=== PATIENT | male | born 1985 | race Caucasian/White ===

== ENCOUNTER 2017-04-14 16:04 | Day surgery (SDC) | payer OTHER ==
[~2017-04-14 16:04] MED LIST: Sodium Chloride 0.9% 10 ML Syringe FLUSH PRN; Sodium Chloride 0.9% 2.5 ML Syringe FLUSH PRN
--- NOTE | 2017-04-14 16:04 | PCM.HP ---
H&P History of Present Illness - General Date of Service: 04/14/17 Admit Problem/Dx: Admission Diagnosis/Problem Admission Diagnosis/Problem Foreign body in lower limb Source of Information: Patient, Old Records History Limitations: Reports: No Limitations - History of Present Illness Initial Comments - Free Text/Narative: Pt is a 31 y/o male who was hitting a pin today with a hammer and had a metal fragment lodge in his RLE. C/o immediate pain. Denies other injuries. H/o previous fracture around the knee, but has gone on to do well following that. C/ o pain with ankle movement. Denies distal paralysis, paresthesias. Onset of Symptoms: Reports: Today Location: Reports: Lower Extremity, Right Quality: Reports: Sharp Severity: Moderate - Related Data Allergies/Adverse Reactions: Allergies Allergy/AdvReac Type Severity Reaction Status Date / Time No Known Allergies Allergy Verified 04/14/17 16:11 Home Medications: Home Meds Acetaminophen/HYDROcodone [Plato 325-5 MG] 1 - 2 tab PO Q4H PRN #80 tablet 04/14 [Rx] Loratadine [Claritin] 10 mg PO DAILY 04/14/17 [History] Past Medical History Cardiovascular History: Reports: None Respiratory History: Reports: None Gastrointestinal History: Reports: None Musculoskeletal History: Reports: Fracture (facial) Neurological History: Reports: None Psychiatric History: Reports: None Endocrine/Metabolic History: Reports: None Hematologic History: Reports: None Immunologic History: Reports: Other (See Below) (seasonal allergies) Oncologic (Cancer) History: Reports: None Dermatologic History: Reports: None - Infectious Disease History Infectious Disease History: Reports: None - Past Surgical History HEENT Surgical History: Reports: Adenoidectomy, Tonsillectomy, Other (See Below ) (ORIF of facial fracture) Social & Family History - Family History Family Medical History: Noncontributory - Tobacco Use Smoking Status *Q: Never Smoker - Recreational Drug Use Recreational Drug Use: No - Living Situation & Occupation Occupation: Employed (works in [employer]) H&P Review of Systems - Review of Systems: Review Of Systems: See Below General: Reports: No Symptoms HEENT: Reports: No Symptoms Pulmonary: Reports: No Symptoms Cardiovascular: Reports: No Symptoms Gastrointestinal: Reports: No Symptoms Genitourinary: Reports: No Symptoms Skin: Reports: No Symptoms Psychiatric: Reports: No Symptoms Neurological: Reports: No Symptoms Hematologic/Lymphatic: Reports: No Symptoms Immunologic: Reports: No Symptoms Exam - Exam Exam: See Below - Exam General: Alert, Oriented, 4 HEENT: Conjunctiva Clear, Nares Patent, Pupils Equal Neck: Supple, Trachea Midline, 2 Lungs: Normal Respiratory Effort Cardiovascular: Regular Rate GI/Abdominal Exam: Soft Neuro Extensive - Mental Status: Alert, Oriented x3, Normal Mood/Affect, Normal Cognition Psychiatric: Alert, Normal Affect, Normal Mood Physical Exam Comments:: Exam of RLE: small superficial laceration over the anterior aspect of the low leg. No active bleeding noted. Calf compartments soft. Pain with ankle motion, but motion is full. No TTP around knee. AT/EHL/gastroc /. Sensation intact. DP 2+. - Patient Data Imaging Impressions Last 24 hrs: XRAY RLE show superfical radiopaque fragment over the lateral aspect of the right low leg. No evidence of fracture. *Q Meaningful Use (ADM) - VTE *Q VTE Criteria *Q: - Stroke *Q Stroke Criteria *Q: - AMI *Q AMI Criteria *Q: - Problem List (1) Foreign body of lower leg SNOMED Code(s): 546814445 ICD Code: S80.859A - SUPERFICIAL FOREIGN BODY, UNSPECIFIED LOWER LEG, INIT ENCNTR Status: Acute Current Visit: Yes Qualifiers: Laterality: right Problem List Initiated/Reviewed/Updated: Yes Orders Last 24hrs: Active Orders 24 hr Category Date Time Status Patient Status [ADT] Routine ADT 04/14/17 15:55 Ordered NPO [Nothing Per Oral Diet] [DIET] Diet 04/14/17 Breakfast Ordered Sodium Chloride 0.9% [Saline Flush] Med 04/14/17 15:55 Ordered 10 ml FLUSH ASDIRECTED PRN Sodium Chloride 0.9% [Saline Flush] Med 04/14/17 15:55 Ordered 2.5 ml FLUSH ASDIRECTED PRN Peripheral IV Insertion Adult [OM.PC] Urgent Oth 04/14/17 15:56 Ordered Assessment/Plan Comment:: At this time, I am recommending removal of the foreign body from the right leg with irrigation and debridement. He received Rocephin in occupational health clinic today. His tetanus is up to date. The procedure, along with post operative course, was also discussed. Risks of procedure include, but are not limited to, infection, n/v injury, stiffness, need for further surgery, blood clots, continued pain, and anesthetic complications. Patient agrees to proceed with surgery. Will plan to discharge home after procedure.
[2017-04-14] MEDS ORDERED: Dexamethasone 4 MG/ML 5 ML MDV ONE (16:08)
[2017-04-14] MEDS ORDERED: Propofol 200 MG/20 ML SDV ONE ×2 (16:08→16:40)
[2017-04-14] MEDS ORDERED: Ketorolac 30 MG/ML SDV ONE (16:08)
[2017-04-14] MEDS ORDERED: Midazolam 1 MG/ML 2 ML SDV ONE (16:08)
[2017-04-14] MEDS ORDERED: fentaNYL 100 MCG/2 ML SDV ONE ×2 (16:08→16:56)
[2017-04-14] MEDS ORDERED: Ondansetron 4 MG/2 ML SDV ONE (16:08)
[2017-04-14] MEDS ORDERED: Bupivacaine 0.5% 10 ML SDV ONE (16:11)
[2017-04-14] MEDS ORDERED: Lidocaine 1% 20 ML MDV ONE (16:11)
--- NOTE | 2017-04-14 16:11 | PCM.OPNOTE ---
- General Post-Op/Procedure Note Date of Surgery/Procedure: 04/14/17 Operative Procedure(s): Irrigation and debridement to muscle RLE and Removal foreign body right lower extremity with closure of 1cm laceration (complex) Post-Op Diagnosis: Foreign body right lower leg, 1 cm laceration Anesthesia Technique: General ET Tube Primary Surgeon: Luann Whitfield EBL in mLs: 10 Condition: Good Free Text/Narrative:: tt=0 min #[id number]
[2017-04-14] MEDS ORDERED: Acetaminophen/HYDROcodone 325-5 MG Tab PO PRN (16:13)
[2017-04-14] MEDS ORDERED: Ketorolac 30 MG/ML SDV IVPUSH PRN (16:13)
--- NOTE | 2017-04-14 16:18 | PCM.PREANE ---
Preanesthetic Assessment - Anesthesia/Transfusion/Family Hx Anesthesia History: Prior Anesthesia Without Reaction Transfusion History: No Prior Transfusion(s) - Review of Systems General: No Symptoms Pulmonary: No Symptoms Cardiovascular: No Symptoms Gastrointestinal: No Symptoms Neurological: No Symptoms Other: Reports: None - Physical Assessment NPO Status Date: 04/14/17 NPO Status Time: 08:00 Height: 1.65 m Weight: 81.647 kg ASA Class: 2E Mental Status: Alert & Oriented x3 Airway Class: Mallampati = 3 Dentition: Reports: Normal Dentition Thyro-Mental Finger Breadths: 3 Mouth Opening Finger Breadths: 3 ROM/Head Extension: Full Lungs: Clear to Auscultation, Normal Respiratory Effort Cardiovascular: Regular Rate, Regular Rhythm - Allergies Allergies/Adverse Reactions: Allergies Allergy/AdvReac Type Severity Reaction Status Date / Time No Known Allergies Allergy Verified 04/14/17 16:11 - Blood Blood Available: Yes Product(s) Available: None - Anesthesia Plan Pre-Op Medication Ordered: None - Acknowledgements Anesthesia Type Planned: General Anesthesia Pt an Appropriate Candidate for the Planned Anesthesia: Yes Alternatives and Risks of Anesthesia Discussed w Pt/Guardian: Yes Pt/Guardian Understands and Agrees with Anesthesia Plan: Yes PreAnesthesia Questionnaire HEENT History: Reports: Allergic Rhinitis Cardiovascular History: Reports: None Respiratory History: Reports: None Gastrointestinal History: Reports: None Musculoskeletal History: Reports: Fracture (facial) Other Musculoskeletal History: face Neurological History: Reports: None Psychiatric History: Reports: None Endocrine/Metabolic History: Reports: None Hematologic History: Reports: None Immunologic History: Reports: Other (See Below) (seasonal allergies) Oncologic (Cancer) History: Reports: None Dermatologic History: Reports: None - Infectious Disease History Infectious Disease History: Reports: None - Past Surgical History HEENT Surgical History: Reports: Other (See Below) (ORIF of facial fracture) - SUBSTANCE USE Recreational Drug Use History: No - HOME MEDS Home Medications: Home Meds Acetaminophen/HYDROcodone [Norman 325-5 MG] 1 - 2 tab PO Q4H PRN #80 tablet 04/14 [Rx] Loratadine [Claritin] 10 mg PO DAILY 04/14/17 [History] - CURRENT (IN HOUSE) MEDS Current Meds: Current Medications Hydrocodone Bitart/Acetaminophen (Norman 325-5 Mg) 1 - 2 tab PO Q4H PRN PRN Reason: Pain Ketorolac Tromethamine (Toradol) 30 mg IVPUSH Q6H PRN PRN Reason: Pain Sodium Chloride (Saline Flush) 10 ml FLUSH ASDIRECTED PRN PRN Reason: Keep Vein Open Sodium Chloride (Saline Flush) 2.5 ml FLUSH ASDIRECTED PRN PRN Reason: Keep Vein Open Discontinued Medications Bupivacaine HCl (Sensorcaine-Mpf 0.5%) Confirm Administered Dose 20 ml .ROUTE .STK-MED ONE Stop: 04/14/17 16:12 Dexamethasone (Dexamethasone) Confirm Administered Dose 20 mg .ROUTE .STK-MED ONE Stop: 04/14/17 16:09 Fentanyl (Sublimaze) Confirm Administered Dose 100 mcg .ROUTE .STK-MED ONE Stop: 04/14/17 16:09 Ketorolac Tromethamine (Toradol) Confirm Administered Dose 30 mg .ROUTE .STK- MED ONE Stop: 04/14/17 16:09 Lidocaine HCl (Xylocaine-Mpf 1%) Confirm Administered Dose 5 ml .ROUTE .STK-MED ONE Stop: 04/14/17 16:09 Lidocaine HCl (Xylocaine 1%) Confirm Administered Dose 20 ml .ROUTE .STK-MED ONE Stop: 04/14/17 16:12 Midazolam HCl (Versed 1 Mg/Ml) Confirm Administered Dose 2 mg .ROUTE .STK-MED ONE Stop: 04/14/17 16:09 Ondansetron HCl (Zofran) Confirm Administered Dose 4 mg .ROUTE .STK-MED ONE Stop: 04/14/17 16:09 Propofol (Diprivan 20 Ml) Confirm Administered Dose 200 mg .ROUTE .STK-MED ONE Stop: 04/14/17 16:09
[2017-04-14] MEDS ORDERED: Lactated Ringers 1,000 ML IV SCH (16:30)
[2017-04-14] MEDS ORDERED: fentaNYL 100 MCG/2 ML SDV IVPUSH PRN (17:17)
--- NOTE | 2017-04-14 18:04 | PCM.POSTAN ---
POST ANESTHESIA ASSESSMENT - MENTAL STATUS Mental Status: Alert, Oriented - RESPIRATORY Respiratory Status: Respiratory Rate WNL, Airway Patent, O2 Saturation Stable - CARDIOVASCULAR CV Status: Pulse Rate WNL, Blood Pressure Stable - GASTROINTESTINAL GI Status: No Symptoms - PAIN Pain Score: 2 - POST OP HYDRATION Hydration Status: Adequate & Stable
--- NOTE | 2017-04-14 18:14 | PCM48HPAN ---
Post Anesthesia Note - EVALUATION WITHIN 48HRS OF ANESTHETIC Vital Signs in Normal Range: Yes Patient Participated in Evaluation: Yes Respiratory Function Stable: Yes Airway Patent: Yes Cardiovascular Function Stable: Yes Hydration Status Stable: Yes Pain Control Satisfactory: Yes Nausea and Vomiting Control Satisfactory: Yes Mental Status Recovered: Yes
[2017-04-14 22:49] VITALS: BP 134/77
--- NOTE | 2017-04-14 23:05 | OR ---
SURGEON: Luann Whitfield MD DATE OF PROCEDURE: 04/14/2017 PREOPERATIVE DIAGNOSES: 1. Retained foreign body, right lower extremity. 2. 1-cm laceration. POSTOPERATIVE DIAGNOSES: 1. Retained foreign body, right lower extremity. 2. 1-cm laceration. PROCEDURE: 1. Removal of foreign body, right lower extremity. 2. Irrigation and debridement, right lower extremity, and laceration to muscle. 3. Closure of 1-cm laceration (complex). WATER CHASER: None. ANESTHESIA: General. ESTIMATED BLOOD LOSS: 5 mL. TOURNIQUET TIME: 0 minutes. COMPLICATIONS: None. DVT PROPHYLAXIS: Not indicated. IMPLANTS USED: None. BRIEF HISTORY: Jose is a 31-year-old male, who injured his right lower extremity at work earlier today. [place]. They were hammering on a piece of metal when a piece of metal inadvertently struck him in the right lower extremity. He was seen initially by the occupational health physician, who obtained x-rays and gave him a dose of Rocephin. He was also given a tetanus booster. He was subsequently referred for orthopedic evaluation. I recommended that we remove the foreign body. The risks and goals of the procedure were discussed with the patient and were documented preoperatively. He agreed to proceed. DESCRIPTION OF PROCEDURE: The patient was properly identified and brought to the operating room. He was transferred from the OR cart and placed on the operating room table in supine position. General anesthesia was administered. After adequate anesthesia was obtained, a well-padded tourniquet was applied to the right lower extremity. The right lower extremity was then prepped in standard fashion using Betadine solution. It was then sterilely draped. A time-out was performed to ensure correct site and procedure. Preoperative antibiotics were given at the [facility] Health [facility]. The site had been marked preoperatively. The right lower extremity was inspected. He had a small 1-cm laceration over the anterior aspect of the right lower extremity. No active bleeding was noted. He did have some swelling in the lateral musculature; however; the compartments appeared soft. The metallic foreign body was identified using the C-arm image intensifier. It was found to be located in the lateral compartment of the low leg and appeared to be quite superficial. A tonsil was then placed into the open wound. The soft tissue path was followed to the retained metallic fragment. It was identified under C-arm. The metallic fragment appeared quite large. Since it was so superficial I elected to make an incision over the lateral aspect of the low leg to retrieve it. The incision was made. Cautery was used to maintain hemostasis. The fascial layer was incised and the metallic fragment was able to be palpated. This was then removed without difficulty. It was sent to Pathology for evaluation. 3 L of normal saline was then irrigated through both of the wounds using a Pulsavac cement finisher helper. The wounds were clean at the completion. The deep tissues were closed with 3-0 Monocryl. The skin was closed with 3-0 nylon. 0.5% Marcaine was injected along the incision site at the completion. The compartments were then evaluated. Although there was some swelling in the lateral compartment, the compartment appeared soft. No other compartments appear to be involved. Xeroform gauze was placed over the wound and a bulky dressing was applied. He was awakened from his anesthetic and transferred back to the operating room. He was brought to recovery room in stable condition. All needle and sponge counts were correct. JESSICA / IRMA /[id number]
--- NOTE | 2017-04-15 11:26 | CR ---
EXAMINATION: Surgery HISTORY: Surgery COMPARISON: None TECHNIQUE: 2 operative control films provided FINDINGS/IMPRESSION: Operative control films demonstrate imaging of the mid to upper tibia and fibula .
== END 2017-04-14 20:00 | disposition home or self-care (01) ==
LOC: MW.SDS 16:04 → MW.MS 18:10 → MW.SDS 20:00
PROVIDERS: ATTEND Orthopaedic Surgery
DX: S81.821A Laceration with foreign body, right lower leg, initial encounter (principal); X58.XXXA Exposure to other specified factors, initial encounter; Z79.899 Other long term (current) drug therapy; Z98.890 Other specified postprocedural states
CPT/HCPCS: 20525; 76000; 88300; J1100; J1885; J2250; J2405; J3010; J7120; 01470; J2704